=== PATIENT | female | born 2000 | race Hispanic/Latino ===

== ENCOUNTER → 2025-01-25 | Outpatient (CLI) | payer BC ==
[2025-01-25 22:50] VITALS: PULSE 80; RESP 16
[2025-01-25 23:30] VITALS: PULSE 78; RESP 14
[2025-01-26] VITALS (11 sets, daily range): PULSE 70–82; RESP 14–16
== END | disposition home or self-care (01) ==
LOC: SLP 20:39
PROVIDERS: ATTEND Nurse Practitioner Family
DX: G47.33 Obstructive sleep apnea (adult) (pediatric) (principal)
CPT/HCPCS: 95810